=== PATIENT | female | born 1945 | race Caucasian/White ===

== ENCOUNTER → 2023-08-27 17:53 | Outpatient (REF) | payer MEDICARE, OTHER, SELFPAY ==
[2023-08-27 20:14] LABS: Urine Albumin Negative (Neg - Trace); Urine Bilirubin Negative (Negative); Urine Character Clear (Clear); Urine Color Yellow; Urine Glucose Negative (Negative); Urine Ketone Negative (Negative); Urine Leukocyte 1+ (Negative); Urine Nitrite Negative (Negative); Urine Occult Blood Negative (Negative); Urine Urobilinogen Negative (Neg - 1+)
[2023-08-27 20:45] LABS: Urine Bacteria Few (Negative); Urine Red Blood Cell 0-2 /HPF (0-2)
== END ==
LOC: OLABN 17:53
PROVIDERS: ATTENDING PHYSICIAN Student in an Organized Health Care Education/Training Program
DX: R30.0 Dysuria (principal)
CPT/HCPCS: 81003; 81015; 87086

== ENCOUNTER → 2024-05-18 11:07 | Outpatient (REF) | payer MEDICARE, OTHER, SELFPAY ==
[2024-05-18 12:56] LABS: TSH 5.09 uIU/ml (0.47-4.68)
== END ==
LOC: OLABN 11:07
PROVIDERS: ATTENDING PHYSICIAN Student in an Organized Health Care Education/Training Program
DX: E03.9 Hypothyroidism, unspecified (principal)
CPT/HCPCS: 36415; 84443

== ENCOUNTER → 2024-06-29 11:37 | Outpatient (REF) | payer MEDICARE, OTHER, SELFPAY ==
[2024-06-29 15:59] LABS: TSH 0.15 uIU/ml (0.47-4.68)
== END ==
LOC: OLABN 11:37
PROVIDERS: ATTENDING PHYSICIAN Student in an Organized Health Care Education/Training Program
DX: E03.9 Hypothyroidism, unspecified (principal)
CPT/HCPCS: 36415; 84443

== ENCOUNTER → 2024-07-30 10:39 | Outpatient (REF) | payer MEDICARE, OTHER, SELFPAY ==
[2024-07-30 12:09] LABS: TSH 0.66 uIU/ml (0.47-4.68)
== END ==
LOC: OLABN 10:39
PROVIDERS: ATTENDING PHYSICIAN Student in an Organized Health Care Education/Training Program
DX: E03.9 Hypothyroidism, unspecified (principal)
CPT/HCPCS: 36415; 84443

== ENCOUNTER → 2024-09-20 16:14 | Outpatient (REF) | payer MEDICARE, OTHER, SELFPAY ==
[2024-09-20 17:11] LABS: Urine Albumin Negative (Neg - Trace); Urine Bilirubin Negative (Negative); Urine Character Clear (Clear); Urine Color Yellow; Urine Glucose Negative (Negative); Urine Ketone Negative (Negative); Urine Leukocyte Negative (Negative); Urine Nitrite Negative (Negative); Urine Occult Blood Negative (Negative); Urine Specific Gravity 1.015 (<1.030); Urine Urobilinogen Negative (Neg - 1+)
== END ==
LOC: OLABN 16:14
PROVIDERS: ATTENDING PHYSICIAN Student in an Organized Health Care Education/Training Program
DX: R82.90 Unspecified abnormal findings in urine (principal)
CPT/HCPCS: 81003; 87086

== ENCOUNTER → 2024-10-22 23:00 | Outpatient (REF) | payer MEDICARE, OTHER, SELFPAY ==
[2024-10-23 13:37] LABS: Urine Albumin Negative (Neg - Trace); Urine Bilirubin Negative (Negative); Urine Character Clear (Clear); Urine Color Yellow; Urine Glucose Negative (Negative); Urine Ketone Negative (Negative); Urine Leukocyte 1+ (Negative); Urine Nitrite Negative (Negative); Urine Occult Blood Negative (Negative); Urine Specific Gravity 1.025 (<1.030); Urine Urobilinogen Negative (Neg - 1+)
[2024-10-23 14:24] LABS: Urine Calcium Oxalate Crystals Seen; Urine Squamous Cell >30 /LPF (Few)
[2024-10-23 14:26] LABS: Urine Bacteria Few (Negative); Urine Red Blood Cell None Seen /HPF (0-2)
== END ==
LOC: OLABN 23:00
PROVIDERS: ATTENDING PHYSICIAN Student in an Organized Health Care Education/Training Program
DX: R82.90 Unspecified abnormal findings in urine (principal); R35.0 Frequency of micturition
CPT/HCPCS: 81003; 81015; 87086

== ENCOUNTER → 2024-10-28 10:17 | Outpatient (REF) | payer MEDICARE, OTHER, SELFPAY ==
[2024-10-28 11:22] LABS: % Basophils 1.3 % (0-2); % Eosinophils 5.2 % (0-6); % Immature Granulocytes 0.2 % (0-0.5); % Lymphocytes 39.2 % (20.5-51.1); % Monocytes 6.6 % (1.7-9.3); % Neutrophils 47.5 % (42.2-75.2); Absolute Basophils 0.1 10^3/uL (0-0.2); Absolute Eosinophils 0.3 10^3/uL (0-0.7); Absolute Lymphocytes 2.2 10^3/uL (1.2-3.4); Absolute Monocytes 0.4 10^3/uL (0.1-0.6); Absolute Neutrophils 2.7 10^3/uL (1.4-6.5); Hematocrit 33.7 % (37.0-47.0); Hemoglobin 11.2 g/dL (12.0-16.0); Mean Corp Hgb Conc. 33.2 g/dL (33.0-37.0); Mean Corpuscular Hgb 33.3 pg (27.0-31.0); Mean Corpuscular Volume 100.3 fL (81.0-99.0); Mean Platelet Volume 10.7 fL (7.4-10.4); Nucleated Red Blood Cells % 0 %; Platelet Count 192 10^3/uL (130-400); Red Blood Cell Count 3.36 10^6/uL (4.20-5.40); Red Cell Dist. Width 13.8 % (11.5-14.5); White Blood Cell Count 5.6 10^3/uL (4.8-10.8)
[2024-10-28 11:49] LABS: Blood Urea Nitrogen 19 mg/dl (7-17); Calcium 8.9 mg/dl (8.4-10.2); Carbon Dioxide 27 mmol/L (22-30); Chloride 108 mmol/L (98-107); Glucose 84 mg/dl (70-99); Potassium 3.9 mmol/L (3.5-5.1); Sodium 143 mmol/L (135-145); eGFR > 60.00
== END ==
LOC: OLABN 10:17
PROVIDERS: ATTENDING PHYSICIAN Student in an Organized Health Care Education/Training Program
DX: R53.83 Other fatigue (principal); E03.9 Hypothyroidism, unspecified; E87.0 Hyperosmolality and hypernatremia
CPT/HCPCS: 36415; 80048; 85025

== ENCOUNTER → 2024-11-16 10:05 | Outpatient (REF) | payer MEDICARE, OTHER, SELFPAY ==
[2024-11-16 11:52] LABS: TSH 3.09 uIU/ml (0.47-4.68)
== END ==
LOC: OLABN 10:05
PROVIDERS: ATTENDING PHYSICIAN Student in an Organized Health Care Education/Training Program
DX: E03.9 Hypothyroidism, unspecified (principal)
CPT/HCPCS: 36415; 84443

== ENCOUNTER → 2025-05-17 10:54 | Outpatient (REF) | payer MEDICARE, OTHER, SELFPAY ==
[2025-05-17 13:16] LABS: TSH 1.28 uIU/ml (0.47-4.68)
== END ==
LOC: OLABN 10:54
PROVIDERS: ATTENDING PHYSICIAN Student in an Organized Health Care Education/Training Program
DX: E03.9 Hypothyroidism, unspecified (principal)
CPT/HCPCS: 36415; 84443